=== PATIENT | male | born 1945 | race Caucasian/White ===

== ENCOUNTER 2025-05-21 09:36 | Day surgery (SDC) | payer MEDICARE ==
[~2025-05-21] VITALS: Ht 175.3 cm; Wt 98.9 kg
[~2025-05-21 09:36] MED LIST: AMLO1TAB24 PO; ASPI81CH33 PO; JARD1TAB PO; LOSA50TA28 PO; METF-838 PO; MIDAZOLAM INJ 2 MG/2 ML VIAL As Ordered ONE; PHENYLEPHRINE 10% OPHTH SOL 5ML OD PRN; ROSU40TA81 PO
[2025-05-21] MEDS: TROPICAMIDE 1% OPHTH SOLN 15ML OD SCH (11:05)
[2025-05-21] MEDS: OFLOXACIN 0.3 % (OCUFLOX) OPTH SOL 5ML OD ONE (11:05)
[2025-05-21] MEDS: CYCLOPENTOLATE 1% OPHTH SOLN 2 ML BTL OD SCH (11:05)
[2025-05-21] MEDS: LIDOCAINE 3.5% 1 ML OPHTH TOPICAL GEL OU ONE (11:05)
[2025-05-21] MEDS: PHENYLEPHRINE 2.5% OPHTH SOL 2ML OD SCH (11:05)
[2025-05-21] MEDS: LIDOCAINE 1% SDV 5 ML VIAL As Ordered ONE (11:40)
[2025-05-21] MEDS: CEFUROXIME 1 MG/0.1 ML INTRACAMERAL INJ As Ordered ONE (11:40)
[2025-05-21 11:50] VITALS: BP 113/66; TEMP 97.4; O2SAT 95
== END 2025-05-21 12:03 | disposition home or self-care (01) ==
LOC: M SDC 09:36
PROVIDERS: ATTEND Ophthalmology
DX: E11.36 Type 2 diabetes mellitus with diabetic cataract (principal); H25.11 Age-related nuclear cataract, right eye; I10 Essential (primary) hypertension; E78.00 Pure hypercholesterolemia, unspecified; Z79.899 Other long term (current) drug therapy; Z79.84 Long term (current) use of oral hypoglycemic drugs; Z79.82 Long term (current) use of aspirin; Z95.5 Presence of coronary angioplasty implant and graft
CPT/HCPCS: 66984; J0697; J2250; J3010; V2632

== ENCOUNTER 2025-06-04 08:14 | Day surgery (SDC) | payer MEDICARE ==
[~2025-06-04] VITALS: Ht 175.3 cm; Wt 99.9 kg
[~2025-06-04 08:14] MED LIST changes: +BSS IRRIG/VANCO(10MG)/TOBRA(5MG)/EPINEPH(1:1000-0.5CC)500ML BAG-ORONLY As Ordered ONE; +CEFUROXIME 1 MG/0.1 ML INTRACAMERAL INJ As Ordered ONE; +CYCLOPENTOLATE 1% OPHTH SOLN 2 ML BTL OS SCH; +LIDOCAINE 1% SDV 5 ML VIAL As Ordered ONE; +LIDOCAINE 3.5% 1 ML OPHTH TOPICAL GEL OU ONE; -MIDAZOLAM INJ 2 MG/2 ML VIAL As Ordered ONE; +OFLOXACIN 0.3 % (OCUFLOX) OPTH SOL 5ML OS ONE; -PHENYLEPHRINE 10% OPHTH SOL 5ML OD PRN; +PHENYLEPHRINE 10% OPHTH SOL 5ML OS PRN; +PHENYLEPHRINE 2.5% OPHTH SOL 2ML OS SCH; +TROPICAMIDE 1% OPHTH SOLN 15ML OS SCH
[2025-06-04] MEDS ORDERED: MIDAZOLAM INJ 2 MG/2 ML VIAL As Ordered ONE (11:07)
[2025-06-04 11:19] VITALS: BP 143/82; TEMP 98.5; O2SAT 92
== END 2025-06-04 11:30 | disposition home or self-care (01) ==
LOC: M SDC 08:14
PROVIDERS: ATTEND Ophthalmology
DX: E11.36 Type 2 diabetes mellitus with diabetic cataract (principal); H25.12 Age-related nuclear cataract, left eye; I10 Essential (primary) hypertension; E78.00 Pure hypercholesterolemia, unspecified; Z79.84 Long term (current) use of oral hypoglycemic drugs; Z79.82 Long term (current) use of aspirin; Z79.899 Other long term (current) drug therapy; Z95.5 Presence of coronary angioplasty implant and graft; Z98.41 Cataract extraction status, right eye
CPT/HCPCS: 66984; J0697; J2250; J3010; V2632